=== PATIENT | female | born 1960 | race Two or more races ===

== ENCOUNTER 2023-10-27 10:36 | Emergency (ER) | payer MEDICAID ==
[~2023-10-27] VITALS: Ht 172.7 cm; Wt 97.7 kg
[2023-10-27 10:51] VITALS: TEMP 98.8
[2023-10-27 11:07] LABS: BASOPHILS % (AUTO) 0.9 % (0.0-2.0); EOSINOPHILS % (AUTO) 3.7 % (1.0-6.0); HEMOGLOBIN 11.3 g/dL (12.0-16.0); LYMPHOCYTES # (AUTO) 1.3 K/uL (1.0-4.8); LYMPHOCYTES % (AUTO) 18.5 % (22.0-44.0); MEAN CORPUSCULAR HEMOGLOBIN 29.5 pg (26.0-34.0); MEAN CORPUSCULAR HGB CONC 33.1 G/dL (31.0-37.0); MEAN CORPUSCULAR VOLUME 89 fL (80-100); MONOCYTES # (AUTO) 0.5 K/uL (0.1-1.0); MONOCYTES % (AUTO) 6.3 % (2.0-9.0); NEUTROPHILS # (AUTO) 5.2 K/uL (1.8-7.7); NEUTROPHILS % (AUTO) 70.6 % (40.0-70.0); PLATELET COUNT (AUTO) 447 K/uL (150-450); RED BLOOD CELL COUNT(AUTO) 3.82 MIL/uL (4.00-5.20); RED CELL DISTRIBUTION WIDTH 14.1 % (11.5-14.5); WHITE BLOOD COUNT (AUTO) 7.3 K/uL (4.5-11.0)
[2023-10-27 11:34] LABS: CALCIUM, TOTAL 9.9 mg/dL (8.8-10.5); CREATININE 0.95 mg/dL (0.60-1.30)
[2023-10-27 11:38] LABS: ALBUMIN 3.8 g/dL (3.4-5.0); BILIRUBIN,TOTAL 0.4 mg/dL (0.1-1.0); TOTAL PROTEIN, SERUM 7.8 g/dL (6.4-8.2)
[2023-10-27] MEDS ORDERED: SODIUM CHLORIDE 0.9% 100 ML ONE (11:38)
[2023-10-27] MEDS ORDERED: IOHEXOL 350 MG/ML 100 ML VIAL ONE (11:38)
[2023-10-27] MEDS: KETOROLAC TROMETHAMINE 30 MG/ML VIAL IVP ONE (11:43)
[2023-10-27] MEDS: ONDANSETRON HCL 4 MG/2 ML VIAL IVP ONE (11:43)
[2023-10-27] MEDS: SODIUM CHLORIDE 0.9% 1,000 ML IV ONE (11:44)
[2023-10-27 11:46] LABS: APPEARANCE,URINE HAZY (CLEAR); BILIRUBIN,URINE NEGATIVE (NEGATIVE); COLOR,URINE YELLOW (YELLOW); GLUCOSE, URINE (UA) NEGATIVE (NEGATIVE); KETONES,URINE NEGATIVE (NEGATIVE); LEUKOCYTE ESTERASE ,URINE LARGE (NEGATIVE); NITRATE,URINE NEGATIVE (NEGATIVE); OCCULT BLOOD,URINE NEGATIVE (NEGATIVE); PH,URINE 5.5 (5.0-8.0); PROTEIN,URINE TRACE mg/dL (NEGATIVE); SPECIFIC GRAVITIY, URINE 1.023 (1.003-1.030); UROBILINOGEN,URINE <=1.0 mg/dL (<=1.0)
[2023-10-27 12:03] LABS: BACTERIA,URINE Moderate /HPF (None Seen); RBC,URINE 0-2 /HPF (0-2)
[2023-10-27 12:04] LABS: SQUAMOUS EPITHELIAL CELL,UR Moderate /LPF (None Seen)
[2023-10-27] MEDS ORDERED: CEPH-558 PO (13:33)
[2023-10-27] MEDS ORDERED: IBUP-1492 PO (13:33)
[2023-10-27] MEDS ORDERED: ACET-3385 PO (13:33)
[2023-10-27] MEDS: CEPHALEXIN MONOHYDRATE 500 MG CAPSULE PO ONE (13:38)
[2023-10-27 13:51] VITALS: BP 126/78; PULSE 62; RESP 16
== END 2023-10-27 13:55 | disposition home or self-care (01) ==
LOC: EMS 10:36
DX: N39.0 Urinary tract infection, site not specified (principal)
CPT/HCPCS: 99285; 74177; 96374; 96361; 96375; 80053; 81001; 83690; 85025; 36415; 87086; 87186; J1885; J2405; Q9967; J7030; J7050